=== PATIENT | male | born 1980 ===

== ENCOUNTER 2018-02-03 12:41 | Emergency (ER) | payer OTHER ==
[~2018-02-03] VITALS: Ht 190.5 cm; Wt 131.5 kg
== END 2018-02-03 17:14 | disposition home or self-care (01) ==
LOC: ER 12:41
DX: S90.02XA Contusion of left ankle, initial encounter (principal); W18.39XA Other fall on same level, initial encounter; Y93.89 Activity, other specified; Y92.098 Other place in other non-institutional residence as the place of occurrence of the external cause; Y99.8 Other external cause status